=== PATIENT | male | born 1970 | race Asian ===

== ENCOUNTER 2017-01-27 14:20 | Inpatient (IN) | payer OTHER ==
[2017-01-27] VITALS (7 sets, daily range): BP systolic 101–133; BP diastolic 74–97; PULSE 89–103; RESP 17–24; O2SAT 93–100
[~2017-01-27] VITALS: Ht 175.3 cm; Wt 81.3 kg
[~2017-01-27 14:20] MED LIST: Furosemide 10 mg/mL 4 mL Inj IVPUSH SCH; ZES10 PO
--- NOTE | 2017-01-27 15:01 | ED.REPORT ---
HPI-Dyspnea / Wheezing Date of Service Jan 27, 2017 ED Provider: Leo Davidson MD This is a 46-year-old male with past medical history of dilated cardiomyopathy and CHF who presents to the ED for shortness of breath. This had been going on since last night without any chest pain. Patient is finding it hard to catch his breath. Shortness of breath is worse with lying flat and better with his head elevated. He notes he has also been having productive cough with white sputum. He notes this feels similar to an episode in 2013 when he had ischemic cardiomyopathy. He has also been feeling bloated. He reports being the long time user of tobacco both chewing and smoking for the last 30 years. He also drinks alcohol daily despite his cardiomyopathy likely being the result of alcohol. He denies any nausea, vomiting, diaphoresis, headache, fevers, chills. He denies any recent travel or any swelling in his legs or tenderness. Nursing Notes Stated Complaint: COUGHING, SHORTNESS OF BREATH Chief Complaint: Respiratory Complaints Nursing Notes Reviewed: Yes ([employer] not reconciled) Allergies: Coded Allergies: No Known Allergies (Unverified , 01/27/17) Scheduled Lisinopril-Expunged Drug, Do Not Renew! (Lisinopril-Expunged Drug, Do Not Renew! 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 Dr Marin. Past Medical History Dilated cardiomyopathy (diagnossed 2012, EF ~20%) CHF Mitral regurgitation Past Surgical History None Smoking History Current Every Day Smoker Social History Per Alcohol Use: 3-5 per day (Hard Liquor, unknown quantity for last 25 years) Drug Use: THC Review of Systems Constitutional: Denies: Chills, Fatigue, Fever Respiratory: Reports: Prod cough, white, Shortness of breath, Denies: Pleuritic pain, Wheezing Cardiovascular: Reports: Orthopnea, Denies: Chest pain, Edema, Palpitations Musculoskeletal: Denies: Back pain Complete sys rev & neg: except as marked. Physical Exam Initial Vital Signs Vital Signs (First) Date Time Temp Pulse Resp B/P Pulse Ox O2 Delivery O2 Flow Rate FiO2 01/27/17 14:23 36.7 103 24 133/97 100 Room Air Initial VS: Reviewed, Vital signs abnormal Head / Eyes: Atraumatic, Normocephalic, PERRL ENT: Mucous membranes moist Abdomen / GI: Soft, No guarding, No rebound, No distention Back: No CVA tenderness Skin: Warm, Dry Neurologic: Alert, Oriented Psychiatric: Mood/affect normal, Behavior normal General/Constitutional: Awake, Alert, No acute distress, Cooperative, Not toxic appearing Not in overt alcohol withdrawal Respiratory / Chest: Breath sounds = bilat, No wheezing Resp Distress / Stridor: Positive: Resp distress moderate Rales / Rhonchi: Positive: Rales bilateral bases Hypoxic at 88% Heart Rate / Rhythm: Positive: Tachycardia Heart Sounds / Murmur: Positive: Murmur location... (5th L mid clav intcostal) , Systolic murmur present.. (III/) No peripheral edema Abdomen: No palpable mass Tenderness/Guarding/Rebound: Positive: Tender epigastric (mild) Organomegaly / Mass / Hernia: Positive: Hepatomegaly Back: Non-tender Lower Extremity / Pelvis / MS: Inspection NL, No swelling, Non-tender, No edema Interpretation & Diagnostics Lab Results Interpretation Result Diagram: 01/27/17 1515 01/27/17 1515 Test 01/27/17 15:15 White Blood Count 7.9th/mm3 (3.8-10.1) Red Blood Count 4.80mil/mm3 (4.40-5.80) Hemoglobin 13.9g/dL (13.8-17.2) Hematocrit 38.9% (41.0-50.0) Mean Corpuscular Volume 81fL (81-100) Mean Corpuscular Hemoglobin 29.0pg (27.0-35.0) Mean Corpuscular Hemoglobin Concent 35.7% (32.0-37.0) Red Cell Distribution Width 13.0% (12.3-15.4) Platelet Count 264bil/L (150-400) Neutrophils (%) (Auto) 70% (40-74) Lymphocytes (%) (Auto) 17% (14-46) Monocytes (%) (Auto) 7% (4-12) Eosinophils (%) (Auto) 5% (0-5) Basophils (%) (Auto) 1% (0-3) Sodium Level 136mEq/L (134-144) Potassium Level 4.0mEq/L (3.5-5.2) Chloride Level 100mEq/L (97-108) Carbon Dioxide Level 20mmol/L (18-29) Blood Urea Nitrogen 16mg/dL (6-24) Creatinine 1.05mg/dL (0.76-1.27) Estimat Glomerular Filtration Rate 80mL/min (>59) Glucose Level 113mg/dL (60-99) Calcium Level 9.0mg/dL (8.5-10.1) Magnesium Level 2.0mg/dL (1.6-2.6) Total Bilirubin 0.6mg/dL (0.0-1.2) Aspartate Amino Transf (AST/SGOT) 23U/L (0-50) Alanine Aminotransferase (ALT/SGPT) 20U/L (0-44) Alkaline Phosphatase 66U/L (25-150) Troponin T < 0.010ug/L (0.0-0.011) Pro-B-Type Natriuretic Peptide 2044pg/mL (0-121) Total Protein 6.8g/dL (6.4-8.4) Albumin 3.9g/dL (3.4-5.0) Alcohols < 10mg/dL (0-10) Lab Results Interpretation: CBC normal CMP normal troponin negative ProBNP elevated ECG Interpretation ECG Interpretation: Sinus rhythm, left bundle branch block, Interpreted by: ED physician X-Ray Chest Interpretation Chest Xray Interpretation: IMPRESSION: Enlarged cardiac mediastinal silhouette with likely early fluid imbalance. No lobar consolidation or definite pleural effusions. Re-Eval/Medical Decision Med Decision/Clinical Course This is a 46-year-old male with history of dilated cardiomyopathy and CHF who presents to the ED for shortness of breath and yesterday. Suspicion is high for acute systolic CHF exacerbation with history of EF of 20-25%. Patient complains of orthopnea and has rales heard at the lower lung bases bilaterally. He has not been compliant with his medications for the last month. Nitroglycerin was given without improvement. Patient did desaturate to 88% on examination. CBC and CMP are unremarkable, troponins negative. BNP is elevated at 2000. EKG shows left bundle branch block and left atrial enlargement. Chest x-ray consistent with CHF. Plan is for admission for acute systolic CHF exacerbation. Source of Hx: Old records Differential Diagnosis: Positive: Congestive heart failure, Negative: Dysrhythmia, Hyperventilation, Pericarditis, Pneumonia, Pneumothorax, Pulmonary embolism Discharge & Departure Impression: Primary Impression: Systolic CHF, acute on chronic Additional Impression: Noncompliance with medication regimen Disposition: ADMITTED TO HOSPITAL Discharge Condition All VS Reviewed: Yes Condition: Stable Referrals: Braxton Good MD (PCP) Attending Statement This is a patient initially seen by the resident, but I personally interviewed and examined. This is a 46-year-old male with a non-ischemic cardiomyopathy attributed EtOH use with a low EF 20% range when is a diagnosed in 2012, which is continued to drink, and ran out of his routine medications out a month ago. He now presents with increasing shortness of breath, orthopnea and dyspnea on exertion which had been well-controlled up in the past 3 days. He is mildly hypoxic with sats drop into the 80s, and he requires supplemental O2. His left bundle branch block which chronic, more pronounced T wave inversions 1 aVL and laterally than on previous EKG. Clinical exam is notable for rales, but no JVD or peripheral edema are evident. Chest x-ray is positive for CHF. Patient received several nitroglycerin Lasix, and is being admitted for continued management. Going to the he drinks daily, but claims last drink was 2 days ago. He does not demonstrate overt signs withdrawal at present but will need to be carefully monitored. Not followed up with his usability engineer in over a year, and given his young age and severity of cardiomyopathy on review his records, cardiology consultation has been requested. The case is discussed with Dr. Em. Elder Montano DO Jan 27, 2017 14:54 Leo Davidson MD Jan 27, 2017 15:01 Lukasz Sanchez Jan 27, 2017 15:42
--- NOTE | 2017-01-27 15:10 | DRSVH ---
PROCEDURE: X-RAY CHEST ONE VIEW, PORTABLE ([id number]) INDICATIONS: SOB h/o CHF TECHNIQUE: One view of the chest was acquired. COMPARISON: [facility], , CHEST 1VW (PORTABLE), 03/25/2013, 6:40. FINDINGS: Surgical changes and devices: None. Lungs and pleura: No pneumothorax. Diffuse interstitial pulmonary opacities greatest in the perihila r lungs. No lobar consolidation or definite pleural effusions. Mediastinum: Mediastinal contours appear normal. Heart size is enlarged. Bones and chest wall: No suspicious bony lesions. Overlying soft tissues appear unremarkable. IMPRESSION: Enlarged cardiac mediastinal silhouette with likely early fluid imbalance. No lobar conso lidation or definite pleural effusions. Dictated by: Ernesto Angel M.D. on 01/27/2017 at 15:07 Approved by: Ernesto Angel M.D. on 01/27/2017 at 15:09
[2017-01-27 15:27] LABS: BASOPHILS % (AUTO) 1 % (0-3); EOSINOPHILS % (AUTO) 5 % (0-5); MONOCYTES % (AUTO) 7 % (4-12); Mean Corpuscular Volume 81 fL (81-100); NEUTROPHILS % (AUTO) 70 % (40-74); Platelet Count 264 bil/L (150-400)
[2017-01-27] MEDS ORDERED: Nitroglycerin 2% 1 Gm Ointment TOPICAL SCH (15:40)
[2017-01-27] MEDS ORDERED: Furosemide 10 mg/mL 4 mL Inj IVPUSH ONE (15:40)
[2017-01-27 15:54] LABS: TROPONIN T < 0.010 ug/L (0.0-0.011)
[2017-01-27] MEDS ORDERED: Polyethylene Glycol (PEG) 17 Gm Powder PO PRN (16:05)
[2017-01-27] MEDS ORDERED: Ondansetron 2 mg/mL 2 mL Inj IVPUSH PRN (16:05)
[2017-01-27] MEDS ORDERED: Alum-Mag Hydrox-Simeth 30 mL Suspension PO PRN (16:05)
[2017-01-27] MEDS ORDERED: Furosemide 10 mg/mL 4 mL Inj IVPUSH SCH (16:10)
[2017-01-27] MEDS: Heparin 5,000 Unit/mL Inj SUBQ SCH (16:30)
[2017-01-27] MEDS: Multivit-Miner-Folic Acid-Iron Tablet PO SCH (16:30)
[2017-01-27] MEDS: Sodium Chloride LOK Flush 10 mL Syringe IVFLUSH SCH (16:30)
[2017-01-27 17:23] LABS: APPEARANCE,URINE CLEAR (CLEAR,HAZY); COLOR,URINE STRAW (YELLOW); OCCULT BLOOD,URINE NEGATIVE (NEGATIVE); PH,URINE 6.5 (5.0-8.0); UROBILINOGEN,URINE NORMAL (NORMAL)
[2017-01-27] MEDS ORDERED: CARV3.122 PO (18:21)
--- NOTE | 2017-01-27 18:22 | NUR ---
Arrival to [facility] Pt arrived to Rm 1005 from ED; A&Ox3, able to understand Ukrainian well but hard time speaking it so at BS translating, VSS, RA, IV SL, no c/o pain, nitro paste on chest. MD made aware of arrival. Care ongoing.
--- NOTE | 2017-01-27 19:27 | CONS ---
[address] [address] CONSULTATION REPORT PATIENT: AZUCENA GRAY : 1970 MR#: [id number] ADMIT: 01/27/2017 JOB ID: [id number] DATE OF SERVICE: 01/27/2017 CHIEF COMPLAINT: I was asked by the hospitalist team to consult on this patient given presentation with CHF. HISTORY OF PRESENT ILLNESS: The patient is an East male. He has a history of hypertension as well as heavy alcohol use since age 17. He is followed by Dr. Fregoso, who initially some after a visit on March 15, 2013 when he presented with abdominal distention, shortness of breath, PND, and orthopnea. He was found to have a dilated cardiomyopathy with an end-diastolic dimension of 7.5. Right ventricle function was also mildly reduced. He had bilateral pleural effusions, a small amount of ascites, which he tells me was tapped. He had a thoracentesis as well. Perfusion study showed no obvious reversible ischemia, but a fixed inferior wall defect. A repeat echocardiogram after medical management in June 2013 showed his left ventricular end-diastolic dimensions were similar, but the EF had improved slightly to 30-35%. There was moderate mitral regurgitation. There was no pericardial or pleural effusion. At that time, he was treated with multiple medications including Aldactone 12.5 mg daily, Coreg 25 mg b.i.d., digoxin 250 mcg daily, Lasix 40 mg daily, and lisinopril 20 mg b.i.d. He is also on thiamine. He showed some improvement, but it was felt that this most likely was an alcohol-related cardiomyopathy. Unfortunately, he did not follow up regularly with Cardiology and has now run out of all his medications. He came in with increased shortness of breath, which had been going on since last night. He describes symptoms of orthopnea and PND as well as a productive cough with white sputum. He has also been feeling bloated. He drinks alcohol daily but denies any nausea, vomiting, diaphoresis, headaches, fevers, or chills. PAST MEDICAL HISTORY/PROBLEM LIST: Dilated cardiomyopathy. CURRENT MEDICATIONS: He has run out of medications. SOCIAL HISTORY: Current smoker. Drinks alcohol. FAMILY HISTORY: No early coronary disease. REVIEW OF SYSTEMS: Overall health: No fevers, chills, night sweats, or weight loss. Weight gain. GI: No blood in his stool. Pulmonary: Increased dyspnea. Cardiac: As per HPI. Psych: Some anxiety. Heme: Some easy bruising or bleeding. All other review of systems of a 12-point review of system are negative. PHYSICAL EXAMINATION: Blood pressure 125/86, heart rate 94, sats are 97% on room air. General: Actually able to lie fairly flat in bed after getting an IV dose of Lasix. In no acute distress. Speaking in full sentences without apparent shortness of breath. Head and neck exam: Normocephalic, atraumatic. Neck: Difficult to appreciate JV distention. Heart exam: Tachycardic without obvious murmurs, gallops, or rubs appreciated. Lungs: Somewhat coarse breath sounds anteriorly. Back: No CVS tenderness to palpation. ABDOMEN: Soft. No significant distention. Extremities: Warm. No appreciable edema. Carotids without bruits appreciated. Skin: Without breakdown appreciated. Neuro: Alert and interactive. Gait is not tested. Psych: Appropriate mood and affect. LABORATORY AND DIAGNOSTIC STUDIES: EKG shows sinus tachycardia with an IVCD, repol changes. Labs show white count 7.9, H and H 13.9 and 38.9, platelets 264,000. Chemistry shows sodium 136, chloride and bicarb 100 and 26, BUN and creatinine 16 and 1.05. Troponin less than 0.01. ProBNP 2044. Chest x-ray shows evidence for a large cardiac silhouette likely from heart failure but no definite pleural effusions. IMPRESSION: The patient comes in off all his medications. He has a history of heart failure. I believe, he was given a dose of Lasix in the emergency department with some improvement. He does describe a cough, which is productive of white sputum. He has no fevers or chills. PLAN: Will reinstitute heart failure medications, diuresis, a repeat echocardiogram and see make sure that his cough improves as we diurese. I spent 50 minutes reviewing his old records, speaking with him and his and discussing his case with the ER doctor and the hospitalist SARINA
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
--- NOTE | 2017-01-27 22:29 | NUR ---
CV; at approx. 2200 telephone operator chief reported "9 beats of V tach". Pt asymptomatic. Dr. Rios "cook paged". No orders noted at this time.
[2017-01-28] VITALS (8 sets, daily range): BP systolic 100–117; BP diastolic 66–82; PULSE 73–87; RESP 16–20; O2SAT 92–99
[2017-01-28] MEDS ORDERED: Furosemide 10 mg/mL 4 mL Inj IVPUSH SCH
[2017-01-28] MEDS: Sodium Chloride LOK Flush 10 mL Syringe IVFLUSH SCH ×3 (00:02→17:57)
[2017-01-28] MEDS: Heparin 5,000 Unit/mL Inj SUBQ SCH ×3 (00:03→17:57)
--- NOTE | 2017-01-28 01:27 | NUR ---
CV; son in room with pt this shift. Pt denies chest pain or nausea. Pt sleeping alot. stated pt didn't get much sleep the past 2 nights due to sob.
--- NOTE | 2017-01-28 03:19 | NUR ---
DRILL RUNNER HELPER; reports: sinus 76.
--- NOTE | 2017-01-28 04:33 | NUR ---
PSYCH; pt sleeping well during the night.
[2017-01-28 05:24] LABS: MONOCYTES % (AUTO) 8.6 % (4-12); Mean Corpuscular Hemoglobin 29.1 pg (27.0-35.0); Mean Corpuscular Volume 82 fL (81-100); NEUTROPHILS % (AUTO) 60.5 % (40-74); Platelet Count 245 bil/L (150-400)
[2017-01-28 05:25] LABS: BASOPHILS % (AUTO) 0.6 % (0-3); EOSINOPHILS % (AUTO) 6.4 % (0-5)
--- NOTE | 2017-01-28 07:00 | NUR ---
[email or web address]; reported at 1855 [address] beats of V tach[address] Dr. Wade notified. No new orders noted. Addendum: 01/28/17 at 0701 by ENMANUEL FITCH RN Dr. Wade notified per "cook paging". Addendum: 01/28/17 at 0706 by ENMANUEL FITCH RN Day shift rn aware.
[2017-01-28] MEDS ORDERED: LISI-610 PO (08:27)
[2017-01-28] MEDS ORDERED: FLUO40CA PO (08:27)
[2017-01-28] MEDS: Multivit-Miner-Folic Acid-Iron Tablet PO SCH (09:19)
--- NOTE | 2017-01-28 10:53 | DRSVH ---
[facility] [address] [place] [address] Echocardiogram Report Name: AZUCENA GRAY Study Date: 01/28/2017 Height: 69 in Hospital Exam Location: [facility] Weight: 179 lb Gender: Male BSA: 2.0 m2 : 1970 Age: 46 yrs BP: 117/82 mmHg Reason For Study: Congestive Heart Failure Ordering Physician: Performed By: Shirlene Sauer Referring Physician: Kam Fregoso Interpretation Summary 1) Severely dilated left ventricle with severely reduced systolic function (EF 20-25%). 2) Normal right ventricular size with mildly reduced function. 3) Severely dilated left atrium. 4) Severe functional mitral regurgitation present. 5) Pulmonary hypertension present, estimated systolic pulmonary pressure of 61 mmHg assuming a right atrial pressure of 8 mm Hg. 6) Compared to the Echo done 06/26/2013, LV function has dropped from 30-35% to 20-25% on today's study. Procedure: A two-dimensional transthoracic echocardiogram with color flow and Doppler was performed. The study quality was technically good. Comparison is made with the echocardiogram of 06/26/2013. The patient was in atrial fibrillation with heart rates between 86-114 bpm during the exam. Left Ventricle: The left ventricle is severely dilated. There is normal left ventricular wall thickness. The ejection fraction is estimated to be 20- 25%. Diastolic function could not be accurately assessed due to atrial fibrillation. Right Ventricle: The right ventricle is normal size. Right ventricular systolic function is mildly reduced. Atria: The left atrium is severely dilated. The right atrium is mildly dilated. There is no Doppler evidence for an interatrial shunt. Mitral Valve: The mitral valve is normal in structure but abnormal in function. There is severe mitral regurgitation. Aortic Valve: The aortic valve is normal in structure and function. The aortic valve opens well. There is trace aortic regurgitation. Tricuspid Valve: The tricuspid valve leaflets are thin and pliable. There is mild tricuspid regurgitation. The right ventricular systolic pressure is estimated at 61 mmHg assuming a right atrial pressure of 8 mm Hg. Pulmonic Valve: The pulmonic valve is normal in structure and function. There is a trace or physiologic amount of pulmonic regurgitation. Great Vessels: The aortic root is normal size. The ascending aorta is normal in size. The pulmonary artery is normal size. The IVC is of normal diameter and collapses less than 50% with a sniff. This suggests a right atrial pressure of 8 mm Hg. Pericardium/ Pleura There is no pericardial effusion. MMode/2D Measurements & Calculations LVIDd: 7.4 cm RA long axis: 5.6 cm LVOT diam LVIDs: 6.9 cm LA A2 area: 39.5 cm FS: 7.4 % LA A4 area: 37.8 cm RA area: 21.6 cm AoV Opening EPSS: 3.1 cm LA length (vol): 7.2 cm RA vol: 70.8 ml IVSd: 0.72 cm LA vol: 177.1 ml RA : 36.0 ml/m2 Ao root diam LVPWd: 0.83 cm LA vol index Aortic Jxn IVC diam: 2.0 cm asc Aorta Diam: 2.6 cm EDV(MOD-sp2) LV juarez. diameter/BSA LV sys. diameter/BSA RVD1 (basal) (cm/m^2): 3.8 (cm/m^2): 3.5 : 3.7 cm ESV(MOD-sp2) EF(MOD-sp2) RVD2 (mid) TAPSE: 1.2 cm : 2.6 cm Doppler Measurements & Calculations Ao V2 max MV E max ghassan Med Peak E' Ghassan TR max ghassan : 90.2 cm/sec : 142.9 cm/sec : 364.4 cm/sec Ao max PG MV P1/2t: 33.1 msecE/E' med: 30.4 TR max PG : 3.3 mmHg Lat Peak E' Ghassan : 53.1 mmHg Ao mean PG MVA(VTI): 1.7 cm PA V2 max MR ERO: 0.29 cm2 E/E' lat: 10.2 : 58.0 cm/sec LVOT Max Ghassan E/e' average: 20.3 PA mean PG : 48.8 cm/sec : 0.71 mmHg PA Accel Time TRACI(I,D): 2.7 cm : 0.08 sec sev ratio MV V2 mean MV P1/2t max ghassan Ao V2 mean LV V1 max PG : 64.4 cm/sec : 66.4 cm/sec MV mean PG MVA(P1/2t): 6.7 cm2Ao V2 VTI: 13.6 cm LV V1 VTI: 8.0 cm TRACI(V,D): 2.4 cm2 MV V2 VTI: 21.5 cm MR flow rate PA V2 mean TRACI indexed to BSA : 129.3 cm3/sec : 40.1 cm/sec (cm^2/m^2): 1.4 MR PISA radius Reading Physician:10:52 AM
[2017-01-28] MEDS: Furosemide 10 mg/mL 4 mL Inj IVPUSH SCH (12:55)
--- NOTE | 2017-01-28 17:34 | NUR ---
tech writer tech writer reported 4 beats of v-tech. MD notified. No interventions at this time, per MD. Call light and tray table within reach. Will continue to monitor patient hourly.
--- NOTE | 2017-01-28 20:36 | PCM.PNMED ---
Subjective Date of Service Jan 28, 2017 Subjective Patient is seen and examined, is wanting to go home Exam Vital Signs Vital Sign - Last Date Time Temp Pulse Resp B/P Pulse Ox O2 Delivery O2 Flow Rate FiO2 01/28/17 20:06 36.6 73 16 100/67 94 Room Air Intake and Output 01/27/17 01/27/17 01/28/17 Cumulative From/Thru 15:00 23:00 07:00 01/27/17 15:23 - 01/28/17 06:18 Intake Total 400 ml 650 ml 1050 ml Output Total 400 ml 850 ml 1250 ml Balance 0 ml -200 ml -200 ml Intake Oral 400 ml 650 ml 1050 ml Output Urine Total 400 ml 850 ml 1250 ml # Voids 2 2 # Bowel Movements 0 0 0 Exam Gen.: No acute distress, unkempt facial hair, patient is pulling the blanket over his face occasionally HEENT: Normocephalic, atraumatic. External ears without defect. Pupils equal, round, and reactive to light and accommodation. Anicteric sclerae, moist conjunctivae, and no lid lag. Oropharynx free of erythema and cobble stoning with moist mucosa. Neck: Supple with full range of motion. No jugular venous distension. No bruits. No lymphadenopathy or thyromegaly. Cardiovascular: Regular rate and rhythm with systolic murmurs without radiation , no rubs, or gallops appreciated Pulmonary: Clear to auscultation bilaterally with no crackles, wheezes, or rhonchi. Normal respiratory effort with no use of accessory muscles. Abdomen: Bowel tones present. Soft, mildly tender diffusely, nondistended. No hepatosplenomegaly or masses appreciated. Neurological: No focal deficits Psychiatric: Normal mood and affect. Alert and oriented to person, place, and time. IVs and Medications IV Fluids None Medications Reviewed: Medications were reviewed in detail Lab and Diagnostics Result Diagram: 01/28/17 0453 01/28/17 1625 Assessment & Plan This is a 46-year-old [place] male with severe cardiac myopathy, systolic heart failure, mitral regurgitation, tricuspid regurgitation, alcohol abuse history of malignant hypertension presenting to the ED due to acute on chronic systolic heart failure Assessment acute on chronic systolic systolic heart failure -- We do not have patient's current medication list, the current medications are taken from his principal technologist last visit. Patient states that Dr. Hoda Hedrick has not changed cardiology medications. -- Received and reviewed records from [facility], creatinine appears to be 1.19-1.49 baseline GFR of 56-64 baseline -- He is in fact on lisinopril/hydrochlorothiazide 20/12.5 twice a day -- Decreased Lasix to Lasix 40 mg IV every 12 hours -- Continue home medications Coreg 25 mg by mouth twice a day -- Hold home medication is Lasix 40 mg by mouth daily, hold spironolactone 12.5 mg daily -- Elevate head of the bed to 30, daily weights -- Nitroglycerin when necessary -- Morphine 1 mg every 4 hours when necessary for dyspnea -- Produce Team Lead consulted: Dr. perez has seen the patient, no additional recommendations at this time. Call Dr. Bassett this a.m., he will see the patient later in the day -- Echocardiogram showed reduced ejection fraction of 20-25%, pulmonary hypertension of 61 mmHg, severe functional mitral regurgitation, severely dilated left atrium compared to 2014 study EF dropped from 30-35% to 20-25% -- Telemetry monitoring Assessment #2 elevated creatinine, at baseline -- Patient still appears to be at his baseline based on his records -- P.m. BMP is ordered -- We will consult nephrology for cardiorenal syndrome as needed Assessment # 3 hypertension chronic presumed uncontrolled -- Patient is being given Lasix and Lasix, when necessary nitroglycerin, and Coreg (he appears to be normotensive at this time though he has not been taking medications, he did get nitroglycerin Lasix in the ER) -- Continue Coreg 25 mg twice a day -- Lisinopril and Aldactone as his blood pressures are not bad Assessment # #4 dyslipidemia, chronic presumed uncontrolled -- Lipid panel in the a.m. showed concern for dyslipidemia -- Patient is started on atorvastatin 40 mg daily at bedtime Assessment # #5 depression chronic presumed uncontrolled -- Received and reviewed records from [facility] -- Started patient on Prilosec 20 mg daily CODE STATUS: /patient is unable to answer questions. We will continue discussion tomorrow High risk medication: Morphine DispositionPatient is admitted under Inpatient status with expected length of stay greater than 2 midnights due to severity of presenting symptoms, risk of adverse event, and complexity of treatment plan. VTE Mechanical Devices: Intermittant Pneumatic CD Resuscitation Status: CPR: Attempt Resuscitation Time spent 25 minutes Mendy Best DO Jan 28, 2017 20:36
[2017-01-29] VITALS (9 sets, daily range): BP systolic 96–112; BP diastolic 65–83; PULSE 70–84; RESP 16–20; O2SAT 95–98
[2017-01-29] MEDS: Sodium Chloride LOK Flush 10 mL Syringe IVFLUSH SCH ×3 (00:46→18:42)
[2017-01-29] MEDS: Heparin 5,000 Unit/mL Inj SUBQ SCH ×3 (00:46→18:42)
[2017-01-29] MEDS: Furosemide 10 mg/mL 4 mL Inj IVPUSH SCH (00:46)
--- NOTE | 2017-01-29 05:38 | NUR ---
health information systems technician health information systems technician notified Pt had 12 beats Vtach. Pt is asymptomatic. Notified MD. Pt VSS, HRR 68-78. 0 c/o pain. care continues
[2017-01-29] MEDS: Multivit-Miner-Folic Acid-Iron Tablet PO SCH (09:09)
[2017-01-29 09:32] LABS: Magnesium 2.2 mg/dL (1.6-2.6); Phosphorus 4.6 mg/dL (2.5-4.9)
--- NOTE | 2017-01-29 10:08 | PCM.PNCARD ---
Subjective Date of service Jan 28, 2017 Chief Complaint dyspnea History of Present Illness 46 yo M h/o chronic systolic heart failure, hypertension, and alcohol abuse admitted with acute heart failure exacerbation from medication noncompliance. Subjective: Since being in the hospital, patient has been diuresed with IV diuretic and feels good from a breathing standpoint. He denies any symptoms. ROS: per HPI and otherwise unremarkable PROBLEM LIST: # HFrEF from dilated cardiomyopahthy: alcohol vs ischemic in etiology # HTN # Alcohol abuse # Medication non-compliance Exam Vital Signs Vital Sign - Last Date Time Temp Pulse Resp B/P Pulse Ox O2 Delivery O2 Flow Rate FiO2 01/29/17 08:08 36.3 75 20 96/65 98 Room Air Intake and Output 01/28/17 01/28/17 01/29/17 Cumulative From/Thru 15:00 23:00 07:00 01/27/17 15:23 - 01/29/17 06:12 Intake Total 1200 ml 400 ml 2650 ml Output Total 1900 ml 950 ml 4100 ml Balance -700 ml -550 ml -1450 ml Intake Oral 1200 ml 400 ml 2650 ml Output Urine Total 1900 ml 950 ml 4100 ml # Voids 2 # Bowel Movements 1 0 1 General appearance: No apparent distress, well-nourished, pleasant, cooperative HEET: Normocephalic atraumatic, no scleral icterus, tongue midline, mucous membranes moist Neck: supple Cardiovascular: RRR, normal S1 and normal S2, no murmurs/ rubs/gallops, PMI laterally displaced, no JVD, no peripheral edema Respiratory: Good aeration, clear to auscultation bilaterally Abdomen: Soft, nontender, nondistended, + bowel sounds Neuro: Alert, no facial droop, tongue midline, able to walk down the hallway without any difficulty\ Psych: flat affect Lab and Diagnostics Result Diagram: 01/28/17 0453 01/29/17 0453 X-Rays, CTs and MRIs Echo 01/28/2017: 1) Severely dilated left ventricle with severely reduced systolic function (EF 20-25%). 2) Normal right ventricular size with mildly reduced function. 3) Severely dilated left atrium. 4) Severe functional mitral regurgitation present. 5) Pulmonary hypertension present, estimated systolic pulmonary pressure of 61 mmHg assuming a right atrial pressure of 8 mm Hg. 6) Compared to the Echo done 06/26/2013, LV function has dropped from 30-35% to 20-25% on today's study. 12-lead ECG Telemetry: Sinus rhythm with rare runs of 3-7 beat nonsustained VT Assessment & Plan Assessment 46 yo M h/o chronic systolic heart failure, hypertension, and alcohol abuse admitted with acute heart failure exacerbation from medication noncompliance. # HFrEF from dilated cardiomyopathy: alcohol vs ischemic in etiology. He is NYHA class IIIB. Patient is euvolemic on exam. In fact, patient has developed an HEATH with IV diuretic therapy. Plan: - Stop IV diuretic and switch to PO diuretic once renal function improves - Restart lisinopril once renal function improves - Continue spironolactone 12.5mg daily - Continue carvedilol 25mg bid - Ischemia evaluation with cath as outpatient # Non-sustained VT: Patient having 3-47 beat runs of nonsustained VT. He is asymptomatic during these episodes. Etiology is likely dilated cardiomyopathy and medication noncompliance. Plan: - Carvedilol as above - Cardiac cath as above - If LVEF does not improve over 35% with 3 months of maximal tolerated heart failure medications and alcohol abstinence, patient can be considered for AICD therapy # HTN: BP well controlled. Meds as above # Alcohol abuse: Significant time spent educating the patient about importance of alcohol abstinence. Family is interested in alcohol rehabilitation program but it is unclear whether patient is also interested. We will defer to primary team for further management. # Medication non-compliance: Significant time spent on educating the patient about importance of medication compliance. Thank you for the interesting cardiology consultation. Patient should follow- up with cardiology (Dr. Fregoso) in 2-4 weeks Problems: Pain Evaluation: Adequate Pain Control VTE Mechanical Devices: Intermittant Pneumatic CD Resuscitation Status: CPR: Attempt Resuscitation Walter Joseph MD Jan 29, 2017 10:08
--- NOTE | 2017-01-29 10:27 | NUR ---
Kvng Calderon MD at regarding 25 beats of V-tach per technical document writer. Awaiting response. Addendum: 01/29/17 at 1716 by MANNY ZENDEJAS RN responded and Mag alvaro hoang at 1050.
[2017-01-29] MEDS ORDERED: Magnesium Sulf 2 Gm/50mL Water 2 GM in IV Premix 1 EACH IV ONE (10:30)
[2017-01-29] MEDS ORDERED: 0.9% Sodium Chloride 100 ML ONE (10:45)
--- NOTE | 2017-01-29 13:04 | CONS ---
[address] [address] CONSULTATION REPORT PATIENT: AZUCENA GRAY : 1970 MR#: [id number] ADMIT: 01/27/2017 JOB ID: [id number] DATE OF SERVICE: RENAL CONSULTATION: HISTORY OF PRESENT ILLNESS: The patient is a very pleasant 46-year-old gentleman who was admitted to [facility] for acute decompensated congestive heart failure. Since admission he has been aggressively diuresed and his creatinine has risen from a level of 1.05 at the time of admission to a level of 1.4 today. Renal consultation is being sought for further evaluation and management of his acute kidney injury. 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 This has been going on since at least 2012. He has not taken any of his medication the past two months prior to admission. In addition he has continued to consume hard liquor and follows a relatively high sodium diet. He states that for several days to week or so prior to admission he began to have progressive dyspnea on exertion, progressing to dyspnea at rest, orthopnea, and paroxysmal nocturnal dyspnea. In addition he has had some increased abdominal fullness but denies any lower extremity edema. He denies any associated nausea, vomiting, constipation, diarrhea, or difficulty in urination. He denies a history of any prior renal problems. There is no history of any prior hematuria, proteinuria, recurrent urinary tract infections, renal lithiasis, history of hepatitis, diabetes, or any rheumatological disease. At time of admission he was treated with spironolactone and furosemide and since admission has had significant urine output over the last several days. He has also had some transient drops in his systolic blood pressure down to the mid 90s range. At time of admission his systolic blood pressure was 133. I do not see where he has been given any nonsteroidals or any proton pump inhibitors, nor does he take any over the counter. His echocardiogram shows an ejection fraction of 20% to 25% and apparently this is worse than his previous echo a number of months ago when it was approximately 35%. He does have some elevated right-sided pressures and mitral regurgitation and dilated left atrium. PAST MEDICAL HISTORY: Significant for severe dilated alcoholic cardiomyopathy. There is a questionable history of hypertension but he denies a history of any prior stroke, asthma, emphysema, tuberculosis, hepatitis, or malignancy. He has also had bilateral pleural effusions in the past, alcoholism, and hyperlipidemia. PAST SURGICAL HISTORY: Significant for thoracentesis in the past. ALLERGIES: He is not allergic to any food or any medications. SOCIAL HISTORY: He uses tobacco and occasional marijuana. He also drinks excessively of hard liquor and all he states as far as the quantity is "a lot." FAMILY HISTORY: Remarkable for heart disease. MEDICATIONS: At time of my evaluation include magnesium, Lipitor, fluoxetine, aspirin, thiamine, carvedilol, and spironolactone, lisinopril, and furosemide have been discontinued. PHYSICAL EXAMINATION: Revealed a thin mildly cachectic-appearing 46-year-old gentleman who was alert and oriented x3, in no distress at the time of my evaluation. His blood pressure is 96/65 with a pulse rate of 70. HEENT examination is remarkable for mildly pale sclerae and bitemporal wasting. Mucous membranes appeared to be somewhat dry. Neck is supple without adenopathy, thyromegaly, or jugular venous distention. Lungs are clear, though somewhat diminished. Heart was regular and rhythmical, with a systolic murmur noted. Abdomen is soft, without evidence of free fluid wave. There was no tenderness, however there was some right upper quadrant fullness consistent with hepatomegaly. I did not appreciate any splenomegaly. Extremities did not show any evidence of any clubbing, cyanosis, or edema. Skin turgor was diminished and there was no evidence of any rashes. IMPRESSION: 1. Acute dehydration secondary to over-diuresis. 2. Acute kidney injury secondary to number one. 3. Hyperuricemia. RECOMMENDATION: I agree with continuing to hold his diuretics and spironolactone for now and allow the patient to take fluids in and recheck his electrolytes in the morning. Once he is back to his euvolemic state we can consider cautious reinstitution of the medications. Once again, I would like to thank you for allowing me to participate in the care of this rather unfortunate patient. I will be following him closely with you.
--- NOTE | 2017-01-29 14:26 | PCM.PNMED ---
Subjective Date of Service Jan 29, 2017 Subjective Patient is seen and examined. His niece is present in the room. Patient is wanting to know if he could go home. He says he has no anxiety, diaphoresis, tremors . States that he will "totally" quit drinking alcohol. He is not dyspneic, no edema. Dr. Joseph has seen him late in the day yesterday. Exam Vital Signs Vital Sign - Last Date Time Temp Pulse Resp B/P Pulse Ox O2 Delivery O2 Flow Rate FiO2 01/29/17 08:08 36.3 75 20 96/65 98 Room Air Intake and Output 01/28/17 01/28/17 01/29/17 Cumulative From/Thru 15:00 23:00 07:00 01/27/17 15:23 - 01/29/17 06:12 Intake Total 1200 ml 400 ml 2650 ml Output Total 1900 ml 950 ml 4100 ml Balance -700 ml -550 ml -1450 ml Intake Oral 1200 ml 400 ml 2650 ml Output Urine Total 1900 ml 950 ml 4100 ml # Voids 2 # Bowel Movements 1 0 1 Exam Gen.: No acute distress HEENT NAD Heart: Regular rate and rhythm Lungs: Clear to auscultation no crackles or wheezes Abdomen soft nontender, normal bowel sounds Extremities: No edema Psych: Anxiety Neurological: No focal deficits IVs and Medications IV Fluids None Medications Reviewed: Medications were reviewed in detail Lab and Diagnostics Result Diagram: 01/28/17 0453 01/29/17 0453 Assessment & Plan This is a 46-year-old [place] male with severe cardiac myopathy, systolic heart failure, mitral regurgitation, tricuspid regurgitation, alcohol abuse history of malignant hypertension presenting to the ED due to acute on chronic systolic heart failure Assessment acute on chronic systolic systolic heart failure -- We do not have patient's current medication list, the current medications are taken from his chauffeur airport limousine last visit. Patient states that Dr. Hoda Hedrick has not changed cardiology medications. -- Received and reviewed records from [facility], creatinine appears to be 1.19-1.49 baseline GFR of 56-64 baseline -- He is in fact on lisinopril/hydrochlorothiazide 20/12.5 twice a day. These medications are currently being held -- Continue home medications Coreg 25 mg by mouth twice a day -- Hold home medication is Lasix 40 mg by mouth daily, hold spironolactone 12.5 mg daily -- Elevate head of the bed to 30, daily weights -- Nitroglycerin when necessary -- Morphine 1 mg every 4 hours when necessary for dyspnea -- Door Worker consulted: Dr. perez has seen the patient, no additional recommendations at this time. Call Dr. Bassett this a.m., he will see the patient later in the day -- Echocardiogram showed reduced ejection fraction of 20-25%, pulmonary hypertension of 61 mmHg, severe functional mitral regurgitation, severely dilated left atrium compared to 2014 study EF dropped from 30-35% to 20-25% -- Telemetry monitoring: Short bursts of PSVT < 6sec yesterday, 25 beat SVT this am. Notified cardiology, Dr. Bassett is aware. 1 time dose of 2 g magnesium is given. Discussed patient's previous medication digoxin with Dr. Bassett. Cardiology recommends a follow-up cath Procedure as outpatient. -- We will discuss LifeVest with UR/social work Assessment #2 elevated creatinine, at baseline -- Patient still appears to be at his baseline based on his records -- P.m. BMP is ordered -- Held patient's diuretics and nocturnal and hence Lasix -- Nephrology is counseled for cardiorenal syndrome Assessment # 3 hypertension chronic presumed uncontrolled -- Patient is being given Lasix and , when necessary nitroglycerin, and Coreg ( he appears to be normotensive at this time though he has not been taking medications, he did get nitroglycerin Lasix in the ER) -- Continue Coreg 25 mg twice a day -- Continue to Hold Lisinopril and Aldactone as his blood pressures are not bad Assessment # #4 dyslipidemia, chronic presumed uncontrolled -- Lipid panel in the a.m. showed concern for dyslipidemia -- Patient is started on atorvastatin 40 mg daily at bedtime Assessment # #5 depression chronic presumed uncontrolled -- Received and reviewed records from [facility] -- Started patient on Prozac 20 mg daily CODE STATUS: /patient is unable to answer questions. We will continue discussion tomorrow High risk medication: Morphine DispositionPatient is admitted under Inpatient status with expected length of stay greater than 2 midnights due to severity of presenting symptoms, risk of adverse event, and complexity of treatment plan. Patient will be able to discharge and a day or 2 pending LifeVest approval for paroxysmal SVT. We also need to start him back on his diuretics prior to discharge Pain Evaluation: Adequate Pain Control VTE Mechanical Devices: Intermittant Pneumatic CD Resuscitation Status: CPR: Attempt Resuscitation Time spent 30 minutes Mendy Best DO Jan 29, 2017 09:04
--- NOTE | 2017-01-29 14:42 | NUR ---
Social Work: Initial Assessment/ Attempted CD Assessment/Multidisciplinary Rounds D: EMR reviewed. Please see Initial Assessment linked to this note for more information. Pt is a 46 year old male admitted [place] with a readmit risk score of 6 for CHF, Hypoxia per H&P. Pt's insurance is [employer]. PCP is Dr. Hedrick at [facility]. Pt discussed in multidisciplinary rounds. CD order acknowledged. Pt has long history of etoh abuse. Per documentation and multidisciplinary rounds, pt's also had questions and requested a meeting with TRIAGE REGISTER NURSE. Cardiology and Nephrology to consult. SW met with pt and son at bedside to conduct initial assessment. Pt was alert and oriented x3. Pt's capacity for self-care assessed. Pt's primary language is not Hungarian. SW asked if pt would like an medical staff physician, pt declined and gestured to his son. SW explained role and wrote phone number on white board. Pt resides at home in [place] with his family, including his , two sons, and mother. Pt is independent with ADLs and self-care. Pt drives. 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 Pt has insurance through is 's job. Pt denies any concerns related to obtaining medications, stated that he didn't need medications in the past. Pt declined DPOA information at bedside. Pt confirms that his family will transport him home via POV when medically ready for d/c. Per chart review, pt drinks etoh daily, approximately 4-5 drinks of hard liquor. Pt has not been withdrawing during this admission, CIWA has been 0. When TRIAGE REGISTER NURSE attempted to discuss pt's etoh use, pt stated that he would not be drinking any longer due to health issues. Pt declined to speak more with TRIAGE REGISTER NURSE regarding etoh use. Pt declined any interest in etoh treatment. Pt was agreeable to outpt CD resources and Rethinking Drinking booklet, left these resources at bedside. T/C to pt's Jesús, , regarding her concerns related to pt. Jesús was on break at work but was not able to chat at length on the phone. Requested that TRIAGE REGISTER NURSE speak with her tomorrow at noon. Private meeting set for noon on 01/30. No questions or concerns shared by phone today. Pt likely to d/c home with family to transport via POV. SW will continue to follow for discharge planning needs. A: Pt who is independent at baseline and has the capacity for self-care. P: Pt declined etoh assessment but was agreeable to resources provided at bedside. Pt is independent with ADLs and self-care. PAOLO scheduled private meeting with pt's tomorrow at noon. Pt anticipated to discharge home with family transport via POV. SW will continue to follow for needs until time of discharge. PAOLO Lopez Addendum: 01/29/17 at 1452 by PORFIRIO CHAVEZ Amended: Links added.
--- NOTE | 2017-01-29 17:08 | DRSVH ---
PROCEDURE: US RENAL SONOGRAM INDICATIONS: Renal injury TECHNIQUE: Real-time scanning was performed of the kidneys and bladder, with image documentation. COMPARISON: None. FINDINGS: Kidneys: Kidneys are normal in size. Right kidney measures 10.7 cm long; left kidney measures 12.4 cm long. Right renal cortical thickness is 0.9 cm; left renal cortical thickness is 0.9 cm. Renal c ortical echotexture is normal. No hydronephrosis or nephrolithiasis. No suspicious solid mass lesio ns. Bladder: Pre-void bladder volume is 85 mL. Post-void residual cannot be evaluated as the patient wa s unable to void. Pre-void images demonstrate no intraluminal masses or stones. On pre-void images, bilateral ureteral jets are noted with color Doppler interrogation. (Of note, ureteral jets may not be detectable in up to 25% of cases due to insufficient differences in specific gravity between uret eral and bladder urine). Miscellaneous: No free pelvic fluid. IMPRESSION: Grossly normal appearance the kidneys. Dictated by: [place]on Green [facility] Interpreted: Mitzy Sharma MD on 01/29/2017 at 11:40 Approved by: Mitzy Sharma M.D. on 01/29/2017 at 17:07
[2017-01-29] MEDS ORDERED: THIA100T64 PO (21:33)
[2017-01-29] MEDS ORDERED: FLUO20CA25 PO (21:33)
[2017-01-29] MEDS ORDERED: SPIR25TA PO (21:37)
[2017-01-29] MEDS ORDERED: LISI-607 PO (21:37)
[2017-01-29] MEDS ORDERED: Furosemide 10 mg/mL 4 mL Inj IVPUSH SCH (23:59)
[2017-01-30] MEDS: Heparin 5,000 Unit/mL Inj SUBQ SCH ×2 (00:43→08:26)
[2017-01-30] MEDS: Sodium Chloride LOK Flush 10 mL Syringe IVFLUSH SCH ×2 (00:43→08:26)
[2017-01-30 01:40] VITALS: BP 100/74; PULSE 76; RESP 22; O2SAT 97
--- NOTE | 2017-01-30 03:12 | NUR ---
OFFICE WORKER Per master automotive glass technician, pt currently at SR 80s. No notes of vtach or other arrhythmias thus far. Hourly rounding.
[2017-01-30 06:15] VITALS: BP 103/67; PULSE 78; RESP 20; O2SAT 99
[2017-01-30 07:05] LABS: APPEARANCE,URINE HAZY (CLEAR,HAZY); COLOR,URINE YELLOW (YELLOW); OCCULT BLOOD,URINE NEGATIVE (NEGATIVE); UROBILINOGEN,URINE NORMAL (NORMAL)
[2017-01-30] MEDS: Multivit-Miner-Folic Acid-Iron Tablet PO SCH (08:25)
[2017-01-30 08:32] VITALS: BP 105/73; PULSE 75; RESP 15; O2SAT 97
--- NOTE | 2017-01-30 10:03 | NUR ---
Vtach Notified hospitalist during rounding r/t Tele," 6 beats, Vtach, SR85." No new orders received. patient is asymptomatic.
--- NOTE | 2017-01-30 10:25 | NUR ---
Life Vest Life vest personnel would be here around 11AM today for life vest fitting per call from phone number [phone]. Omar donaldson hospitalist. Notified cardiology Dr. Joseph's office.
[2017-01-30 10:51] VITALS: PULSE 80
--- NOTE | 2017-01-30 11:44 | PCM.DC.MED ---
Discharge Summary Date of Service Jan 30, 2017 Dates of Hospitalization Date of Hospital Admission Jan 27, 2017 at 16:52 Date of Discharge: Jan 30, 2017 Providers: Admitting Physician: Mendy Best DO Primary Care Physician: Braxton Good MD Attending Physician: Stephan Lagos MD Diagnosis at Time of Discharge Diagnosis at Time of Discharge Acute on chronic systolic systolic heart failure- poa, active- likely due to alcohol vs ischemic in etiology Acute on CKD, poa, active. Non-sustained VT, poa, active- hypertension chronic presumed uncontrolled dyslipidemia, chronic presumed uncontrolled depression chronic presumed uncontrolled Consultations Cardiology- Dr. Joseph Nephrology- Dr. Castillo Brief History Per HPI on 01/[address] Best This is a 46-year-old [place] male past medical history of dilated alcoholic cardiomyopathy, systolic heart failure, ischemic cardiomyopathy, mitral regurgitation, tricuspid regurgitation, chronic alcohol medication, history of malignant hypertension, bilateral pleural effusions is presenting to the ER due to dyspnea. Apparently. Patient was seen in 2012 for the heart failure related problems and also has cardiomyopathy, was referred to Dr. Fregoso and was put on lisinopril, Coreg, Lasix, aspirin. Patient has not been compliant with medications, has not seen since 2014. He sees his PCP Dr. Hedrick at [facility]. He has not taken any of his medications for 1 month according to his , because he is unable to afford to buy the medications. 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 He has been drinking up to 5 drinks of hard liquor daily, he has been drinking since age 17. Last alcohol drink was on Saturday (2 days ago ) is also saying that recently he started taking of marijuana, last usage was 1 week ago. Patient does not smoke but chews tobacco, he declines a nicotine patch. Patient is speaking in broken Northern Irish, patient's right feasible to speak good Northern Irish. Patient states that he has no peripheral edema, he feels that his abdomen is distended, denies urinary symptoms, GI symptoms, denies dizziness. He states that he is maintaining a good appetite. He denies chest pain and abdominal pain In the ER alcohol levels less than legal limit, troponin is less than 0.01, Dr. Solomon change control manager is consulted. He was given 40 mg of IV Lasix, EKG showed no impressive changes from prior, left bundle-branch, more T wave inversions. Patient states that his symptoms completely resolved after taking Lasix in the ER. Chest x-ray showed enlarged cardiac silhouette with early fluid imbalance changes. BNP is elevated>2000. Records revealed that he has not seen his change control manager since 2014. We do not have his PCP records in our system. 2012 stress test showed inferior wall defect. An echo dated 06/26/13 showed 30-35% ejection fraction atrial dilation, severe left ventricular dilation, moderate severe hypokinesis and left ventricle , 23 mmHg pulmonary pressures. Hospital Course This is a 46-year-old [place] male with severe cardiac myopathy, systolic heart failure, mitral regurgitation, tricuspid regurgitation, alcohol abuse history of malignant hypertension presenting to the ED due to acute on chronic systolic heart failure Acute on chronic systolic systolic heart failure- poa, active- likely due to alcohol vs ischemic in etiology -- Hold home medication is Lasix 40 mg by mouth daily, held spironolactone 12.5 mg daily -- Echocardiogram showed reduced ejection fraction of 20-25%, pulmonary hypertension of 61 mmHg, severe functional mitral regurgitation, severely dilated left atrium compared to 2014 study EF dropped from 30-35% to 20-25% -- Telemetry monitoring: Short bursts of PSVT < 6sec yesterday, 25 beat SVT this am. Notified cardiology, Dr. Bassett is aware. 1 time dose of 2 g magnesium is given. Cardiology, Dr. Joseph, discharge recommendations - Restart lisinopril once renal function improves - Continue spironolactone 12.5mg daily - Continue carvedilol 25mg bid - Ischemia evaluation with cardiac cath as outpatient. - If LVEF does not improve over 35% with 3 months of maximal tolerated heart failure medications and alcohol abstinence, patient can be considered for AICD therapy - Patient should follow-up with cardiology (Dr. Fregoso) in 2-4 weeks Acute on CKD, poa, active. -- Received and reviewed records from [facility], creatinine appears to be 1.19-1.49 baseline GFR of 56-64 baseline creatinine, at baseline -- Patient still appears to be at his baseline based on his records -- Nephrology following. Dr. Castillo, continuing to hold his diuretics and spironolactone for now and allow the patient to take fluids in and recheck his electrolytes. - Needs repeat BMP in 1 week after discharge. Follow low potassium diet if planning on taking Spironolactone. Non-sustained VT, poa, active- Patient having 3-47 beat runs of nonsustained VT. He is asymptomatic during these episodes. Etiology is likely dilated cardiomyopathy and medication noncompliance. - Pt has Life Vest fitted, will remain until cardiology follow up. - Cardiology following. See plan above. hypertension chronic presumed uncontrolled -- Patient was given Lasix and , when necessary nitroglycerin, and Coreg. --See plan above. dyslipidemia, chronic presumed uncontrolled -- Patient is started on atorvastatin 40 mg daily at bedtime depression chronic presumed uncontrolled -- Received and reviewed records from [facility] -- Started patient on Prozac 20 mg daily Disposition- Pt will be discharged home with LifeVest. Medications Updates- - Started on atorvastatin 40 mg daily at bedtime - Started on Prozac 20 mg daily - Continue spironolactone 12.5mg daily - Continue carvedilol 25mg bid - Can resume Lisinopril/HCTZ. - Follow low potassium diet if planning on taking Spironolactone. - Patient should follow-up with cardiology (Dr. Fregoso) in 2-4 weeks - Follow up with PCP, Dr. Hedrick in 1 week. Will need repeat BMP in 1 week. Follow low potassium diet if planning on taking Spironolactone. - Patient should follow-up with cardiology (Dr. Fregoso) in 2-4 weeks Exam Vital Signs (Last) Date Time Temp Pulse Resp B/P Pulse Ox O2 Delivery O2 Flow Rate FiO2 01/30/17 10:51 80 01/30/17 08:32 36.4 15 105/73 97 01/30/17 06:15 Room Air Test 01/27/17 15:15 01/28/17 04:53 01/29/17 09:04 01/30/17 05:25 Hemoglobin A1c 5.3% (4.8-5.6) Troponin T < 0.010ug/L (0.0-0.011) Pro-B-Type Natriuretic Peptide 2044pg/mL (0-121) Alcohols < 10mg/dL (0-10) White Blood Count 8.1th/mm3 (3.8-10.1) Red Blood Count 4.68mil/mm3 (4.40-5.80) Hemoglobin 13.6g/dL (13.8-17.2) Hematocrit 38.4% (41.0-50.0) Mean Corpuscular Volume 82fL (81-100) Mean Corpuscular Hemoglobin 29.1pg (27.0-35.0) Mean Corpuscular Hemoglobin Concent 35.4% (32.0-37.0) Red Cell Distribution Width 13.1% (12.3-15.4) Platelet Count 245bil/L (150-400) Neutrophils (%) (Auto) 60.5% (40-74) Lymphocytes (%) (Auto) 23.9% (14-46) Monocytes (%) (Auto) 8.6% (4-12) Eosinophils (%) (Auto) 6.4% (0-5) Basophils (%) (Auto) 0.6% (0-3) Total Bilirubin 0.5mg/dL (0.0-1.2) Aspartate Amino Transf (AST/SGOT) 20U/L (0-50) Alanine Aminotransferase (ALT/SGPT) 18U/L (0-44) Alkaline Phosphatase 66U/L (25-150) Total Protein 6.2g/dL (6.4-8.4) Albumin 3.8g/dL (3.4-5.0) Triglycerides Level 469mg/dL (0-149) Cholesterol Level 217mg/dL (100-199) LDL Cholesterol, Calculated 99.200mg/dL (0-99) VLDL Cholesterol 93.800mg/dL HDL Cholesterol 24mg/dL (>39) Cholesterol/HDL Ratio 9.04 (0.0-4.4) Uric Acid 9.1mg/dL (2.6-7.2) Phosphorus Level 4.6mg/dL (2.5-4.9) Magnesium Level 2.2mg/dL (1.6-2.6) Parathyroid Hormone (Intact) 30pg/mL (15-65) Sodium Level 142mEq/L (134-144) Potassium Level 5.0mEq/L (3.5-5.2) Chloride Level 103mEq/L (97-108) Carbon Dioxide Level 26mmol/L (18-29) Blood Urea Nitrogen 25mg/dL (6-24) Creatinine 1.24mg/dL (0.76-1.27) Estimat Glomerular Filtration Rate 66mL/min (>59) Glucose Level 104mg/dL (60-99) Calcium Level 8.8mg/dL (8.5-10.1) Test 01/30/17 06:15 Urine Color Yellow (YELLOW) Urine Appearance Hazy (CLEAR,HAZY) Urine pH 6.0 (5.0-8.0) Urine Specific [place] 1.022 (1.003-1.035) Urine Protein Negativemg/dL (NEG,TRACE) Urine Glucose (UA) Negativemg/dL (NEGATIVE) Urine Ketones Negativemg/dL (NEGATIVE) Urine Occult Blood Negative (NEGATIVE) Urine Nitrite Negative (NEGATIVE) Urine Bilirubin Negative (NEGATIVE) Urine Urobilinogen Normalmg/dL (NORMAL) Urine Leukocyte Esterase Negative (NEGATIVE) Urine RBC 0-2/hpf (0-2) Urine WBC 0-5/hpf (0-5) Urine Epithelial Cells Occasional/hpf (NONE-MOD) Urine Crystals None seen (NONE SEEN) Urine Bacteria Few/hpf (NONE-FEW) Urine Hyaline Casts None/lpf (NONE) Urine Granular Casts None seen (NONE SEEN) Urine Waxy Casts None seen (NONE SEEN) Urine Red Blood Cell Casts None seen (NONE SEEN) Urine White Blood Cell Casts None seen (NONE SEEN) Urine Mucus Present (None Seen) Urine Trichomonas None seen (NONE SEEN) Urine Yeast None (NONE SEEN) Urinalysis Comment None Urine Culture Reflexed Not indicated Discharge Medications Discharge Medications Carvedilol (Carvedilol) 3.125 Mg Tablet 25 MG PO BID (Reported) Fluoxetine (Fluoxetine) 40 Mg Capsule 20 MG PO QAM (Reported) Lisinopril (Zestril) 10 Mg Tablet 10 MG PO DAILY (Reported) Lisinopril/HCTZ 20-12.5 mg (Zestoretic 20-12.5 mg) 1 Each Tablet 1 EACH PO DAILY (Reported) Spironolactone (Aldactone) 25 Mg Tablet 12.5 MG PO DAILY (Reported) Thiamine Mononitrate (Vitamin B-1) 100 Mg Tablet 100 MG PO MORNING (Reported) Additional med instructions - Started on atorvastatin 40 mg daily at bedtime - Started Aspirin 81mg daily. - Continue spironolactone 12.5mg daily - Continue carvedilol 25mg twice a day. - Can resume Lisinopril/HCTZ 20-12.5mg daily, Hold Lisinopril 10mg daily. Followup Plan Disposition: Discharge to home with LifeVest Follow-up plan - Follow-up with cardiology (Dr. Fregoso) in 2-4 weeks - Follow up with PCP, Dr. Hedrick in 1 week. Will need repeat BMP in 1 week. Follow low potassium diet if planning on taking Spironolactone. - Patient should follow-up with cardiology (Dr. Fregoso) in 2-4 weeks Discharge Diet: Other (Low potassium ) Time spent Greater than 30 minutes was spent in preparation of discharge with greater than 50% of that time dedicated to patient counseling and coordination of care. copies to: Hoda Hedrick MD, Navdeep MD Jan 30, 2017 11:44
--- NOTE | 2017-01-30 12:25 | NUR ---
Life Vest Patient fitted for life vest per [facility]. Called school lunch monitor for Tele and it is SR 84.
[2017-01-30 13:12] VITALS: BP 101/71; PULSE 79; RESP 18; O2SAT 98
[2017-01-30] MEDS ORDERED: ATOR40TA69 PO (13:23)
[2017-01-30] MEDS ORDERED: ASPI81TA3 PO (13:23)
--- NOTE | 2017-01-30 13:27 | PCM.DIMED ---
Discharge Instructions Date of Service Jan 30, 2017 Dates of Hospitalization Jan 27, 2017 at 16:52 Discharge Diagnosis Discharge Diagnosis Acute on chronic systolic systolic heart failure- poa, active- likely due to alcohol vs ischemic in etiology Acute on CKD, poa, active. Non-sustained VT, poa, active- hypertension chronic presumed uncontrolled dyslipidemia, chronic presumed uncontrolled depression chronic presumed uncontrolled Medication Instructions Additional med instructions - Started on atorvastatin 40 mg daily at bedtime - Started Aspirin 81mg daily. - Continue spironolactone 12.5mg daily - Continue carvedilol 25mg twice a day. - Can resume Lisinopril/HCTZ 20-12.5mg daily, Hold Lisinopril 10mg daily. Diet Discharge Diet: Other (Low potassium ) Patient Instructions Patient Instructions Check weight daily, if notice 2-3 pounds weight gain call your primary doctor about getting medication doses increased. Follow-up plan - Follow-up with cardiology (Dr. Fregoso) in 2-4 weeks - Follow up with PCP, Dr. Hedrick in 1 week. Will need repeat BMP in 1 week. Follow low potassium diet if planning on taking Spironolactone. - Patient should follow-up with cardiology (Dr. Fregoso) in 2-4 weeks Follow-up Provider: Hoda Hedrick MD Follow-up with PCP in: 1 week Provider: Kam Fregoso MD Follow-up in: 2 weeks Stephan Lagos MD Jan 30, 2017 13:27
[2017-01-30] MEDS ORDERED: CARV25TA2 PO (13:47)
--- NOTE | 2017-01-30 13:51 | PCM.PNNEPH ---
Subjective Date of Service Jan 30, 2017 Subjective Feeling better, no chest pain or SOB. Kidney function has improved. Exam Vital Signs Vital Sign - Last Date Time Temp Pulse Resp B/P Pulse Ox O2 Delivery O2 Flow Rate FiO2 01/30/17 13:12 36.5 79 18 101/71 98 Room Air Intake and Output 01/29/17 01/29/17 01/30/17 Cumulative From/Thru 15:00 23:00 07:00 01/27/17 15:23 - 01/30/17 06:20 Intake Total 92 ml 1221 ml 3963 ml Output Total 1500 ml 5600 ml Balance 92 ml -279 ml -1637 ml Intake Oral 1221 ml 3871 ml IV Total 92 ml 92 ml Output Urine Total 1500 ml 5600 ml # Voids 2 # Bowel Movements 0 1 Exam GA: AAOx3, No acute distress HEENT NAD, atraumatic. Heart: Regular rate and rhythm, S1/S2. Lungs: Clear to auscultation no crackles or wheezes Abdomen soft nontender, normal bowel sounds Extremities: No edema, cyanosis or clubbbings. Lab and Diagnostics Result Diagram: 01/28/17 0453 01/30/17 0525 Plan Impression 1. HEATH secondary to diuretics. 2. HFrEF, dilated cardiomyopathy. 3. H/o ETOH abuse. 4. Hypertension. Plan: Hold aldactone for now. Repeat BMP within 1 week, if stable recommend to resume aldactone. Daily weight. Low sodium and low potassium diet. Arlyn Thomas MD Jan 30, 2017 13:51
--- NOTE | 2017-01-30 13:53 | NUR ---
Social Work- Discharge Data: EMR reviewed. Pt is on day 3 of hospitalization. Pt discussed in multidisciplinary rounds. Pt was fitted for a Lifevest today. SW met with pt, , and niece at bedside regarding alcohol treatment and medications. Pt's declined leaving the room to have this discussion. Pt's and pt's niece are very hopeful that pt will engage in treatment to stop drinking. SW discussed that pt did not want to speak about his etoh use and declined treatment yesterday. and niece oriented to the CD resources provided to pt yesterday. Niece reports that she has talked to [facility] and they would follow up there. Niece also asked for more information related to Disability, provided general information from [facility] on disability and provided the address to [facility] office in [place]. Pt's and niece both declined any difficulty obtaining medications for pt, but did express that pt does not often want to go to the doctor. Pt and family all agreeable to d/c today. Pt is eager to return home. No additional d/c planning needs. Assessment: Pt who is independent with ADLs and self-care. Plan: Pt to discharge home with family to transport via POV. No additional d/c planning needs identified. PAOLO Lopez
--- NOTE | 2017-01-30 14:12 | NUR ---
Discharge patient is alert and orientedX3. New orders for discharge. Reviewed discharge paper work, discharge instructions, discharge prescriptions, follow up appointments with cardiology and PCP including BMP lab with in one week per orders. family at bed side and niece is calling to schedule follow up appointments. Patient and family understood discharge instructions and signed the discharge paperwork. IV to left arm discontinued. sterilisation technician notified for discontinue Telemetry. patient denies pain or discomfort prior to discharge. patient left unit 1408 via walking per preference.
--- NOTE | 2017-01-30 18:09 | PCM.ADCARE ---
Advance Care Planning Note Purpose of Encounter: To understand patient's goals of care in the context of his continued alcohol abuse following his 2013 diagnosis and management of ischemic cardiomyopathy and severe systolic HF. Parties in Attendance: Patient, and Dr. Mendy Best Decisional Capacity: Good Subjective: Patient did not appear to be interested in this discussion, he understands Vincentian well but speaks broken Vincentian. Jesús is fluent with Vincentian but she feels she is not ready to discuss these matters at this time. She asked me if she could address this with me tomorrow. I have reassured her that this is not a decision she needs to make in a hurry, we will discuss this further when/if she/patient feels ready. Patient to remain full code. Objective: Patient has several risk factors of increased morbidity despite his relatively young age. He has been drinking hard liquor since the age of 17, he has been unable to quit drinking (though he currently says he will consider quitting), and his heart disease is severe. His EF has dropped back to 20-25% from 30-35%. He has been unable to work and afford his meds which caused for him to be non- compliant with his cardiac medications. Patient has been noted to be depressed and have issues with self-control. Plan: Will address code status when family and patient are ready. CODE STATUS: Full Code ADM: Time Spent Adv.Care Planning: Total time spent [id number] and education directly related to advanced planning 30 min Adv. Care Plan Documenation: As above and also documented in H&P Mendy Best DO Jan 30, 2017 18:09
== END 2017-01-30 14:16 | disposition home or self-care (01) | DRG 292 ==
LOC: SED 14:20 → OSC 16:52
PROVIDERS: ADMIT Family Medicine; ATTEND Internal Medicine
DX: I50.23 Acute on chronic systolic (congestive) heart failure (principal); I42.0 Dilated cardiomyopathy; I42.6 Alcoholic cardiomyopathy; I47.2 Ventricular tachycardia; N17.9 Acute kidney failure, unspecified; I34.0 Nonrheumatic mitral (valve) insufficiency; Z91.14 Patient's other noncompliance with medication regimen; F32.9 Major depressive disorder, single episode, unspecified; I07.1 Rheumatic tricuspid insufficiency; F17.220 Nicotine dependence, chewing tobacco, uncomplicated; E78.5 Hyperlipidemia, unspecified; E86.0 Dehydration; F12.10 Cannabis abuse, uncomplicated; Z72.89 Other problems related to lifestyle; T50.2X5A Adverse effect of carbonic-anhydrase inhibitors, benzothiadiazides and other diuretics, initial encounter

== ENCOUNTER 2017-02-06 15:23 | Emergency (ER) | payer OTHER ==
[~2017-02-06] VITALS: Ht 177.8 cm; Wt 82.3 kg
[2017-02-06] VITALS (7 sets, daily range): BP systolic 75–104; BP diastolic 46–71; PULSE 64–74; RESP 16–18; O2SAT 96–98
[~2017-02-06 15:23] MED LIST changes: +ASPI81TA3 PO; +ATOR40TA69 PO; +CARV25TA2 PO; +FLUO40CA PO; -Furosemide 10 mg/mL 4 mL Inj IVPUSH SCH; +LISI-607 PO; +SPIR25TA PO; +THIA100T64 PO; -ZES10 PO
--- NOTE | 2017-02-06 16:19 | ED.REPORT ---
HPI-General Illness Date of Service Feb 06, 2017 ED Provider: Navi Schmidt MD Pt is a 46 year old male with a hx of HTN, CAD, ventricular tachycardia, hyperlipidemia, and severe dilated alcoholic cardiomyopathy with most recent ejection fraction of 20 to 25% presenting to the ED from [facility] due to asymptomatic hypotension with a blood pressure of 62/44. He was recently admitted to the hospital due to CHF exacerbation and was at [facility] today for a regular follow up appointment. The pt had been feeling okay since he left the hospital and denies any symptoms whatsoever. Pt is currently taking Lisinopril, hydrochlorothiazide, Coreg, atorvastatin, Fluoxetine, Spironolactone, Aspirin, and Carvedilol according to his medication last. Pt denies any symptoms at this time such as chest pain, SOB, nausea, vomiting, fever, chills, weakness, numbness, lightheadedness, or dizziness. Pt is followed by Dr. Fregoso. His most recent echo showed reduced EJF of 20-25% , associated pulmonary HTN, severely dilated left atrium, and severe functional mitral regurgitation. Nursing Notes Stated Complaint: LOW BLOOD PRESSURE/SENT FROM [facility] Chief Complaint: General Complaint Nursing Notes Reviewed: Yes Allergies: Coded Allergies: No Known Allergies (Unverified , 01/27/17) Scheduled Aspirin Chew (Aspirin Chew) 81 Mg Chew 81 MG PO DAILY Atorvastatin Calcium (Atorvastatin Calcium) 40 Mg Tablet 40 MG PO HS Carvedilol (Carvedilol) 25 Mg Tablet 25 MG PO BID Fluoxetine (Fluoxetine) 40 Mg Capsule 40 MG PO QAM Lisinopril/HCTZ 20-12.5 mg (Zestoretic 20-12.5 mg) 1 Each Tablet 1 EACH PO DAILY Spironolactone (Aldactone) 25 Mg Tablet 12.5 MG PO DAILY Thiamine Mononitrate (Vitamin B-1) 100 Mg Tablet 100 MG PO MORNING General Time Seen by MD: 16:05 Chief Complaint Other (hypotension) Hx Obtained From: Patient, Other family... (Sister) Arrived By: Walk-in Sudden in Onset?: No Onset Occurred: Onset unknown Severity: Current: No pain currently Severity: Maximum: No pain Recent Healthcare: Recent doctor visit, Recent hospitalization Similar Sx Previous: Yes Past Medical History Past Medical History Notes: Medical Scientific Liaison. Dr Marin. Past Medical History Dilated cardiomyopathy (diagnossed 2012, EF ~20%) CHF Mitral regurgitation Ventricular tachycardia Reports: Coronary artery disease, Hypertension Past Surgical History None Smoking History Current Every Day Smoker Social History Per Alcohol Use: 3-5 per day Drug Use: THC Ambulatory Status Independent Review of Systems Hypotension Full Review of Systems Constitutional: Denies: Chills, Fever Respiratory: Denies: Shortness of breath, Wheezing Cardiovascular: Denies: Chest pain GI: Denies: Nausea, Vomiting Neurologic: Denies: Dizziness, Lightheaded, Numbness, Weakness Physical Exam Vital Signs Vital Signs Date Time Temp Pulse Resp B/P Pulse Ox O2 Delivery O2 Flow Rate FiO2 02/06/17 15:48 36.7 67 18 94/60 98 Room Air Initial VS: Reviewed General/Constitutional: Well-developed, Well-nourished Head / Eyes: Atraumatic, Normocephalic, PERRL ENT: Mucous membranes moist, Conjunctiva normal, No scleral icterus Respiratory: Breath sounds normal, Clear to auscultation, No respiratory distress Abdomen / GI: Soft, Non-tender, No guarding, No rebound, No distention Skin: Warm, Dry, No cyanosis Psychiatric: Mood/affect normal, Behavior normal, Normal thought content General/Constitutional: Awake, Alert, No acute distress, Well appearing Non toxic. Wearing heart rate monitor vest. Cardiovascular: Heart rate NL, Regular rhythm, Heart sounds NL, No gallop, No murmurs, No rubs, Cap refill not delayed, Pulses = bilaterally Lower Extremity / Pelvis / MS: No swelling, Non-tender, No deformity, Neurologic intact, Vascular intact, No edema Neurologic: Oriented X3, Speech NL, No motor deficits, No sensory deficits, CN II - XII intact, Reflexes equal bilat, Cerebellar NL, Memory NL Interpretation & Diagnostics Lab Results Interpretation Result Diagram: 02/06/17 1633 02/06/17 1633 Test 02/06/17 16:33 White Blood Count 6.7th/mm3 (3.8-10.1) Red Blood Count 4.51mil/mm3 (4.40-5.80) Hemoglobin 13.2g/dL (13.8-17.2) Hematocrit 36.5% (41.0-50.0) Mean Corpuscular Volume 80.9fL (81-100) Mean Corpuscular Hemoglobin 29.3pg (27.0-35.0) Mean Corpuscular Hemoglobin Concent 36.2% (32.0-37.0) Red Cell Distribution Width 12.8% (12.3-15.4) Platelet Count 241bil/L (150-400) Neutrophils (%) (Auto) 52.1% (40-74) Lymphocytes (%) (Auto) 30.4% (14-46) Monocytes (%) (Auto) 11.2% (4-12) Eosinophils (%) (Auto) 5.5% (0-5) Basophils (%) (Auto) 0.7% (0-3) Hold Purple Top Tube Received (Received) Hold Blue Top Tube Received (Received) Sodium Level 140mEq/L (134-144) Potassium Level 4.3mEq/L (3.5-5.2) Chloride Level 101mEq/L (97-108) Carbon Dioxide Level 24mmol/L (18-29) Blood Urea Nitrogen 23mg/dL (6-24) Creatinine 1.44mg/dL (0.76-1.27) Estimat Glomerular Filtration Rate 56mL/min (>59) Glucose Level 99mg/dL (60-99) Calcium Level 9.3mg/dL (8.5-10.1) Magnesium Level 2.1mg/dL (1.6-2.6) Total Bilirubin 0.5mg/dL (0.0-1.2) Aspartate Amino Transf (AST/SGOT) 20U/L (0-50) Alanine Aminotransferase (ALT/SGPT) 23U/L (0-44) Alkaline Phosphatase 61U/L (25-150) Troponin T < 0.010ug/L (0.0-0.011) Pro-B-Type Natriuretic Peptide 777.4pg/mL (0-121) Total Protein 6.8g/dL (6.4-8.4) Albumin 4.1g/dL (3.4-5.0) Hold [place] Top Tube Received (Received) ECG Interpretation ECG Interpretation: LBBB. No acute ST segment changes or T wave abnormalities. When compared to prior EKG dated 01/27/2017 EKG is unchanged. Time: 16:48 Interpreted by: ED physician Normal ECG Interpretation: Normal rate (63), Normal sinus rhythm X-Ray Chest Interpretation Chest Xray Interpretation: IMPRESSION: New left perihilar cavitated mass. Recommend a chest CT with contrast for further evaluation. Dictated by: Ernesto Angel M.D. on 02/06/2017 at 17:39 View: AP & lat Interpretation / Wet Read by: Interpret - Radiologist Re-Eval/Medical Decision Med Decision/Clinical Course Pt is a 46 year old male with a hx of HTN, CAD, ventricular tachycardia, hyperlipidemia, and severe dilated alcoholic cardiomyopathy with most recent ejection fraction of 20 to 25% presenting to the ED from [facility] due to asymptomatic hypotension with a blood pressure of 62/44. He was recently admitted to the hospital due to CHF exacerbation and was at [facility] today for a regular follow up appointment. The pt had been feeling okay since he left the hospital and denies any symptoms whatsoever. Pt is currently taking Lisinopril, hydrochlorothiazide, Coreg, atorvastatin, Fluoxetine, Spironolactone, Aspirin, and Carvedilol according to his medication last. Pt denies any symptoms at this time such as chest pain, SOB, nausea, vomiting, fever, chills, weakness, numbness, lightheadedness, or dizziness. Reviewed most recent discharge summary dated January 30 2017 (6 days ago). Has hx of dilated alcoholic cardiomyopathy. EKG shows LBBB. No acute ST segment changes or T wave abnormalities. When compared to prior EKG dated 01/27/2017 EKG is unchanged. Chest x ray: New left perihilar cavitated mass. Recommend a chest CT with contrast for further evaluation. Laboratory studies notable as below: Troponin negative CMP notable only for mildly elevated creatinine of 1.44 CBC unremarkable BNP 777 Here in the emergency department the patient was not profoundly hypotensive. He had blood pressure ranging in the 90s to 100s systolic over the 50s to 60s diastolic. In reviewing his previous hospital course it appears that his blood pressures at baseline. He has not had any symptoms whatsoever and states he is completely unaware that he was hypotensive. I discussed the patient with cardiology Dr. Ramos as well as the inpatient hospitalist. The patient was not felt to require admission nor did he desire to be admitted to the hospital. His medication list was reviewed and the decision was made to discontinue his lisinopril/hydrochlorothiazide and have him continue on 10 mg of lisinopril daily. He will follow up closely with his telecommunications specialist in the next couple of days. The patient's hypotension is related to aggressive diuresis and starting multiple new antihypertensives in the setting of his underlying congestive heart failure. Patient remained asymptomatic and hemodynamically stable. He was discharged in good condition with plan for close outpatient follow-up. Time of Eval: 16:43 Patient Status: Condition improved Re-Evaluation/Progress Note: Discussed plan for admission. Pt understands and agrees. Consultation #1: Referral / Consult Name: Lydia Sanchez MD Consulted With: Cardiology Call Returned at: 16:35 Note: Admit for further medication of blood pressure medications. Consultation #2: Referral / Consult Name: Joey Marquez MD Consulted With: Hospitalist Call Returned at: 17:13 Note: The pt can actually go home with altered BP medications. Counseled Regarding: Diagnosis, Lab results, Need for follow-up, When/why to return to ED Discharge & Departure Primary Impression: Hypotension Hypotension type: unspecified hypotension type Qualified Code: I95.9 - Hypotension, unspecified Additional Impressions: Dilated cardiomyopathy Acute kidney injury Medication side effect Encounter type: initial encounter Qualified Code: T88.7XXA - Unspecified adverse effect of drug or medicament, initial encounter Disposition: Home Discharge Condition All VS Reviewed: Yes Condition: Improved Patient Instructions: Dilated Cardiomyopathy (GEN), Hypotension (ED) Additional Instructions: Continue taking the 10 mg of lisinopril daily Discontinue the lisinopril/hydrochlorothiazide combination pill. Continue all of your other regular medications. Follow up with your telecommunications specialist as previously scheduled on the of this month. Return for any lightheadedness, weakness, confusion, passing out, swelling of your legs, or shortness of breath. Thank you for entrusting us with your care today. Referrals: Braxton Good MD (PCP) Jaceyibe Attestation Portions of this note were transcribed by Asia Gonzalez. I, Dr. Schmidt personally performed the history, physical exam and medical decision-making; I reviewed and confirmed the accuracy of the information in the transcribed note. Signed by: Ilda Dooley, 02/06/2017. copies to: Braxton Good MD, Beck O MD Feb 06, 2017 16:19 ASIA GONZALEZ Feb 06, 2017 16:38
[2017-02-06] MEDS ORDERED: Ondansetron 2 mg/mL 2 mL Inj IVPUSH PRN (16:40)
[2017-02-06] MEDS ORDERED: Alum-Mag Hydrox-Simeth 30 mL Suspension PO PRN (16:40)
[2017-02-06 16:41] LABS: BASOPHILS % (AUTO) 0.7 % (0-3); EOSINOPHILS % (AUTO) 5.5 % (0-5); MONOCYTES % (AUTO) 11.2 % (4-12); Mean Corpuscular Hemoglobin 29.3 pg (27.0-35.0); Mean Corpuscular Volume 80.9 fL (81-100); NEUTROPHILS % (AUTO) 52.1 % (40-74); Platelet Count 241 bil/L (150-400)
[2017-02-06 16:54] LABS: TROPONIN T < 0.010 ug/L (0.0-0.011)
[2017-02-06 17:04] LABS: Magnesium 2.1 mg/dL (1.6-2.6)
--- NOTE | 2017-02-06 17:42 | DRSVH ---
PROCEDURE: X-RAY CHEST, TWO VIEWS ([id number]) INDICATIONS: assess for pulm edema, HYPOTENSION TECHNIQUE: 2 views of the chest were acquired. COMPARISON: None. FINDINGS: Surgical changes and devices: None. Lungs and pleura: New cavitated left perihilar mass measuring 3.4 x 2.2 CM. Remaining lungs are clear . Mediastinum: Mediastinal contours are normal. Heart size is normal. Bones and chest wall: No suspicious bony abnormalities. Soft tissues appear unremarkable. IMPRESSION: New left perihilar cavitated mass. Recommend a chest CT with contrast for further evaluat ion. Dictated by: Ernesto Angel M.D. on 02/06/2017 at 17:39 Approved by: Ernesto Angel M.D. on 02/06/2017 at 17:41
== END 2017-02-06 20:02 | disposition home or self-care (01) ==
LOC: SED 15:23 → UNDOADMIN 17:14 → MPC 17:14 → SED 20:02
DX: I95.9 Hypotension, unspecified (principal); T46.5X5A Adverse effect of other antihypertensive drugs, initial encounter; Y93.89 Activity, other specified; Y92.89 Other specified places as the place of occurrence of the external cause; Y99.8 Other external cause status; N17.9 Acute kidney failure, unspecified; I42.0 Dilated cardiomyopathy; I11.0 Hypertensive heart disease with heart failure; I50.9 Heart failure, unspecified; I25.10 Atherosclerotic heart disease of native coronary artery without angina pectoris; E78.5 Hyperlipidemia, unspecified; I47.2 Ventricular tachycardia; F17.200 Nicotine dependence, unspecified, uncomplicated; Z79.82 Long term (current) use of aspirin